=== PATIENT | female | born 1935 | race African-American/Black ===

== ENCOUNTER → 2021-07-17 | Outpatient (CLI) | payer MEDICARE ==
[2021-07-17 12:01] LABS: Basophils # (auto) 0 10 ^3/uL (0-0.2); Basophils % (auto) 0.3 % (0.0-2.0); Eosinophils # (auto) 0.7 10 ^3/uL (0-0.8); Eosinophils % (auto) 8.2 % (0.0-7.0); Hematocrit 36.5 % (36.0-46.0); Hemoglobin 12.1 g/dL (12.2-16.2); Lymphocytes # (auto) 4.3 10 ^3/uL (0.4-5.4); Lymphocytes % (auto) 54.3 % (10.0-50.0); Mean Corpuscular Hemoglobin 29.6 pg (28.0-32.0); Mean Corpuscular Hgb Conc. 33.1 g/dL (32.0-36.0); Mean Corpuscular Volume 89.5 fL (80.0-100.0); Monocytes # (auto) 0.7 10 ^3/uL (0-1.3); Monocytes % (auto) 8.6 % (0.0-12.0); Neutrophils # (auto) 2.3 10 ^3/uL (1.6-8.6); Neutrophils % (auto) 28.6 % (37.0-80.0); Nucleated Red Blood Cells % 0.1 %; Red Blood Cells 4.08 10^6/uL (4.0-5.20); Red Cell Distribution Width 13.9 % (11.8-14.3)
[2021-07-17 12:33] LABS: Potassium 4.2 mmol/L (3.5-5.1)
[2021-07-17 12:38] LABS: Albumin 3.1 g/dL (3.4-5.0); BUN/Creatinine Ratio 12.7; Calcium 8.9 mg/dL (8.5-10.1)
[2021-07-17 12:41] LABS: Bilirubin, Total 0.3 mg/dL (0.2-1.0); Total Protein 8.3 g/dL (6.4-8.2)
== END | disposition home or self-care (01) ==
LOC: LAB 10:51
PROVIDERS: ATTEND Nurse Practitioner Family
DX: E66.8 Other obesity (principal); Z00.00 Encounter for general adult medical examination without abnormal findings
CPT/HCPCS: 36415; 80053; 85025

== ENCOUNTER 2021-07-22 00:01 | Inpatient (IN) | payer MEDICARE, OTHER ==
[~2021-07-22] VITALS: Ht 154.9 cm; Wt 71.8 kg
[2021-07-22] MEDS ORDERED: SODIUM CHLORIDE 0.9% 1,000 ML IVB ONE (01:15)
[2021-07-22] MEDS ORDERED: ONDANSETRON HCL 4 MG/2 ML VIAL IV ONE (01:15)
[2021-07-22 01:42] LABS: Basophils # (auto) 0 10 ^3/uL (0-0.2); Basophils % (auto) 0.4 % (0.0-2.0); Eosinophils # (auto) 0 10 ^3/uL (0-0.8); Eosinophils % (auto) 0.2 % (0.0-7.0); Hematocrit 32.6 % (36.0-46.0); Hemoglobin 11.1 g/dL (12.2-16.2); Lymphocytes # (auto) 1.6 10 ^3/uL (0.4-5.4); Lymphocytes % (auto) 20.3 % (10.0-50.0); Mean Corpuscular Hemoglobin 30.2 pg (28.0-32.0); Mean Corpuscular Hgb Conc. 34.1 g/dL (32.0-36.0); Mean Corpuscular Volume 88.5 fL (80.0-100.0); Monocytes # (auto) 0.9 10 ^3/uL (0-1.3); Monocytes % (auto) 10.9 % (0.0-12.0); Neutrophils # (auto) 5.5 10 ^3/uL (1.6-8.6); Neutrophils % (auto) 68.2 % (37.0-80.0); Red Blood Cells 3.68 10^6/uL (4.0-5.20); Red Cell Distribution Width 13.8 % (11.8-14.3); White Blood Cell 8.1 10^3/uL (4.4-10.8)
[2021-07-22 02:00] LABS: Albumin 2.6 g/dL (3.4-5.0); BUN/Creatinine Ratio 16.9; Calcium 8.5 mg/dL (8.5-10.1); Magnesium 2.2 mg/dL (1.6-2.6); Potassium 3.1 mmol/L (3.5-5.1)
[2021-07-22 02:03] LABS: Bilirubin, Total 0.8 mg/dL (0.2-1.0); Total Protein 7.7 g/dL (6.4-8.2)
[2021-07-22] MEDS ORDERED: POTASSIUM EFFERVESENT TAB 25 MEQ PO ONE (02:30)
[2021-07-22] MEDS ORDERED: IOHEXOL 300 MG/ML 100ML BOTTLE IJ ONE (03:31)
[2021-07-22 05:49] LABS: Urine Bacteria FEW /hpf (None Seen); Urine Blood 1+ /uL (Negative); Urine Mucus FEW (None Seen); Urine WBC 5 /hpf (0 - 5)
[2021-07-22 05:50] LABS: Urine Specific Gravity > 1.050 (1.001-1.035)
[2021-07-22] MEDS: POTASSIUM CHL 20MEQ/100ML 100 ML IV SCH ×2 (07:09→09:08)
[2021-07-22 07:24] LABS: INR 1.23 (0.9-1.15)
[2021-07-22] MEDS ORDERED: NICOTINE 7MG/24HR TOPICAL PATCH TD ONE (10:15)
[2021-07-22] MEDS ORDERED: MORPHINE SULFATE INJ 2 MG/ml SYRG IV PRN (10:15)
[2021-07-22] MEDS ORDERED: hydrALAZINE HCL 20 MG/ML VL IV ONE (10:45)
[2021-07-22] MEDS ORDERED: hydrALAZINE HCL 20 MG/ML VL IV PRN (10:45)
[2021-07-22 10:55] LABS: Cholesterol 176 mg/dL (< 200); HDL Cholesterol 49 mg/dL (40-59); LDL Cholesterol 106 mg/dL (< 100); Triglycerides 83 mg/dL (< 150)
[2021-07-22 13:55] VITALS: BP 145/56
[2021-07-22 14:00] VITALS: BP 145/56
[2021-07-22 20:00] VITALS: BP 163/62
[2021-07-22 22:00] VITALS: BP_SYST 134; BP_SYST 163; BP_DIAS 62; BP_DIAS 86
[2021-07-23 06:34] LABS: Basophils # (auto) 0.1 10 ^3/uL (0-0.2); Basophils % (auto) 0.8 % (0.0-2.0); Eosinophils # (auto) 0 10 ^3/uL (0-0.8); Eosinophils % (auto) 0.4 % (0.0-7.0); Hematocrit 32.2 % (36.0-46.0); Hemoglobin 10.9 g/dL (12.2-16.2); Lymphocytes # (auto) 1.8 10 ^3/uL (0.4-5.4); Lymphocytes % (auto) 22.5 % (10.0-50.0); Mean Corpuscular Hemoglobin 30.1 pg (28.0-32.0); Mean Corpuscular Hgb Conc. 33.9 g/dL (32.0-36.0); Mean Corpuscular Volume 88.6 fL (80.0-100.0); Monocytes # (auto) 1.1 10 ^3/uL (0-1.3); Monocytes % (auto) 13.1 % (0.0-12.0); Neutrophils # (auto) 5.1 10 ^3/uL (1.6-8.6); Neutrophils % (auto) 63.2 % (37.0-80.0); Nucleated Red Blood Cells % 0.1 %; Red Blood Cells 3.64 10^6/uL (4.0-5.20); Red Cell Distribution Width 13.8 % (11.8-14.3)
[2021-07-23 06:53] LABS: Albumin 2.3 g/dL (3.4-5.0); BUN/Creatinine Ratio 15.9; Calcium 8.2 mg/dL (8.5-10.1); Potassium 3.4 mmol/L (3.5-5.1)
[2021-07-23 06:55] LABS: Bilirubin, Total 0.5 mg/dL (0.2-1.0); Total Protein 7.1 g/dL (6.4-8.2)
[2021-07-23 08:40] VITALS: BP 130/55
[2021-07-23] MEDS ORDERED: ENOXAPARIN SOD 40 MG/0.4 ML SYRINGE SC SCH (10:00)
[2021-07-23] MEDS ORDERED: NICOTINE 7MG/24HR TOPICAL PATCH TD SCH (10:00)
[2021-07-23] MEDS ORDERED: cefTRIAXone 1GM/50ML D5W 50 ML IV ONE (11:00)
[2021-07-23] MEDS ORDERED: POTASSIUM CHL 20 Meq TABLET PO ONE (11:00)
[2021-07-23] MEDS ORDERED: amLODIPine BESYLATE 5 MG TAB PO ONE (11:00)
[2021-07-23 12:40] VITALS: BP 144/51
[2021-07-23 16:54] VITALS: BP 146/59
[2021-07-23] MEDS: metroNIDAZOLE 500MG/100ML 100 ML IV SCH ×2 (17:08→22:21)
[2021-07-23 21:39] VITALS: BP 146/62
[2021-07-24 04:45] VITALS: BP 129/55
[2021-07-24] MEDS: metroNIDAZOLE 500MG/100ML 100 ML IV SCH ×3 (06:11→21:59)
[2021-07-24 07:21] LABS: BUN/Creatinine Ratio 17.2; Calcium 7.9 mg/dL (8.5-10.1); Potassium 3.2 mmol/L (3.5-5.1)
[2021-07-24 08:00] VITALS: BP_SYST 141; BP_SYST 142; BP_DIAS 65; BP_DIAS 80
[2021-07-24] MEDS ORDERED: POTASSIUM CHL 20 Meq TABLET PO ONE (10:00)
[2021-07-24] MEDS ORDERED: amLODIPine BESYLATE 5 MG TAB PO SCH (10:00)
[2021-07-24] MEDS: D5W/SOD CHL 0.45%/KCL 20MEQ 1,000 ML IV SCH (10:24)
[2021-07-24] MEDS: cefTRIAXone 1GM/50ML D5W 50 ML IV SCH (10:24)
[2021-07-24 12:30] VITALS: BP 134/53
[2021-07-24 17:06] VITALS: BP 148/64
[2021-07-24 22:00] VITALS: BP 140/67
[2021-07-25 05:00] VITALS: BP_SYST 119; BP_SYST 150; BP_DIAS 42; BP_DIAS 69
[2021-07-25] MEDS: D5W/SOD CHL 0.45%/KCL 20MEQ 1,000 ML IV SCH ×2 (05:28→16:01)
[2021-07-25] MEDS: metroNIDAZOLE 500MG/100ML 100 ML IV SCH ×3 (06:07→22:55)
[2021-07-25 06:46] LABS: BUN/Creatinine Ratio 12.7; Calcium 8.2 mg/dL (8.5-10.1); Potassium 3.2 mmol/L (3.5-5.1)
[2021-07-25 08:00] VITALS: BP 145/67
[2021-07-25] MEDS: cefTRIAXone 1GM/50ML D5W 50 ML IV SCH (09:24)
[2021-07-25] MEDS: amLODIPine BESYLATE 5 MG TAB PO SCH (10:16)
[2021-07-25] MEDS ORDERED: HYDROmorphone HCL 2 MG/ML VL/or syr ONE (11:32)
[2021-07-25] MEDS ORDERED: MIDAZOLAM HCL 2MG/2ML 2ml VIAL (1mg/ml) ONE (11:33)
[2021-07-25] MEDS ORDERED: fentaNYL CITRATE 100 MCG/2 ML VL ONE (11:33)
[2021-07-25] MEDS ORDERED: LIDOCAINE 2% (LOCAL ANESTH.) PF 5ml SDV ONE (11:34)
[2021-07-25] MEDS ORDERED: ePHEDrine SULFATE 50 MG/ML AMP ONE (11:34)
[2021-07-25] MEDS ORDERED: DexAMETHasone SOD PHOS 10MG/1ML VIAL INJ ONE (11:34)
[2021-07-25] MEDS ORDERED: ONDANSETRON HCL 4 MG/2 ML VIAL ONE (11:34)
[2021-07-25] MEDS ORDERED: PHENYLEPHRINE HCL 10 MG/ML VL ONE (11:34)
[2021-07-25] MEDS ORDERED: GLYCOPYRROLATE 0.2 MG/ML 1ML VIAL ONE (11:34)
[2021-07-25] MEDS ORDERED: ROCURONIUM 10MG/ML 10ML VIAL IV ONE (11:38)
[2021-07-25 12:00] VITALS: BP 135/60
[2021-07-25] MEDS ORDERED: LIDOCAINE 1%-Mpf/Epinephrine 1:200,000 ONE (12:16)
[2021-07-25] MEDS ORDERED: BUPIVACAINE 0.25% INJ 50ML VIAL ONE (12:16)
[2021-07-25] MEDS ORDERED: ceFAZolin 1GM/50ML 100 ML IV ONE (12:19)
[2021-07-25] MEDS ORDERED: SUGAMMADEX 200mg/2ml Vial (100MG/ML) IV ONE (13:09)
[2021-07-25] MEDS ORDERED: HYDROmorphone HCL 2 MG/ML VL/or syr IV PRN ×2 (13:15→13:45)
[2021-07-25] MEDS ORDERED: KETAMINE 50mg/ML 10ml Vial (500mg/10ml) IV ONE (13:21)
[2021-07-25] MEDS ORDERED: ONDANSETRON HCL 4 MG/2 ML VIAL IV PRN (13:45)
[2021-07-25 16:00] VITALS: BP 138/65
[2021-07-25 22:31] VITALS: BP 158/69
[2021-07-26 05:34] VITALS: BP 144/65
[2021-07-26] MEDS: metroNIDAZOLE 500MG/100ML 100 ML IV SCH ×3 (05:39→21:42)
[2021-07-26 05:41] LABS: Albumin 2.3 g/dL (3.4-5.0); BUN/Creatinine Ratio 11.8; Calcium 8.3 mg/dL (8.5-10.1); Magnesium 2.3 mg/dL (1.6-2.6); Potassium 3.7 mmol/L (3.5-5.1)
[2021-07-26 05:44] LABS: Bilirubin, Total 0.3 mg/dL (0.2-1.0); Total Protein 7.2 g/dL (6.4-8.2)
[2021-07-26] MEDS: cefTRIAXone 1GM/50ML D5W 50 ML IV SCH (09:15)
[2021-07-26] MEDS: amLODIPine BESYLATE 5 MG TAB PO SCH (09:31)
[2021-07-26] MEDS ORDERED: MORPHINE SULFATE INJ 2 MG/ml SYRG IV PRN (10:15)
[2021-07-26] MEDS ORDERED: traMADol HCL 50 MG TAB PO PRN (10:15)
[2021-07-26 13:00] VITALS: BP 141/67
[2021-07-26 17:00] VITALS: BP 135/56
[2021-07-26 22:00] VITALS: BP 163/64
[2021-07-27] MEDS: ONDANSETRON HCL 4 MG/2 ML VIAL IV PRN ×2 (00:47→10:19)
[2021-07-27] MEDS: D5W/SOD CHL 0.45%/KCL 20MEQ 1,000 ML IV SCH ×2 (01:16→18:09)
[2021-07-27 05:00] VITALS: BP 166/73
[2021-07-27] MEDS: metroNIDAZOLE 500MG/100ML 100 ML IV SCH ×3 (06:30→22:41)
[2021-07-27 07:07] LABS: Eosinophils # (auto) 0 10 ^3/uL (0-0.8); Monocytes # (auto) 0.7 10 ^3/uL (0-1.3); Neutrophils # (auto) 13.4 10 ^3/uL (1.6-8.6); White Blood Cell 16.4 10^3/uL (4.4-10.8)
[2021-07-27 07:12] LABS: Basophils # (auto) 0 10 ^3/uL (0-0.2); Basophils % (auto) 0.3 % (0.0-2.0); Hematocrit 32.6 % (36.0-46.0); Hemoglobin 11.3 g/dL (12.2-16.2); Lymphocytes # (auto) 2.3 10 ^3/uL (0.4-5.4); Mean Corpuscular Hemoglobin 30.8 pg (28.0-32.0); Mean Corpuscular Hgb Conc. 34.6 g/dL (32.0-36.0); Monocytes % (auto) 4.2 % (0.0-12.0); Neutrophils % (auto) 81.5 % (37.0-80.0); Red Blood Cells 3.66 10^6/uL (4.0-5.20); Red Cell Distribution Width 14.1 % (11.8-14.3)
[2021-07-27 07:27] LABS: Albumin 2.4 g/dL (3.4-5.0); Calcium 8.6 mg/dL (8.5-10.1); Potassium 3.1 mmol/L (3.5-5.1)
[2021-07-27 07:29] LABS: BUN/Creatinine Ratio 18.2
[2021-07-27 07:32] LABS: Bilirubin, Total 0.3 mg/dL (0.2-1.0); Total Protein 7.3 g/dL (6.4-8.2)
[2021-07-27 09:00] VITALS: BP 128/48
[2021-07-27] MEDS ORDERED: ACETAMINOPHEN 325 MG TAB PO PRN (09:15)
[2021-07-27 09:52] VITALS: BP 172/73
[2021-07-27] MEDS: amLODIPine BESYLATE 5 MG TAB PO SCH (10:00)
[2021-07-27] MEDS: cefTRIAXone 1GM/50ML D5W 50 ML IV SCH (10:18)
[2021-07-27 13:00] VITALS: BP 162/77
[2021-07-27] MEDS ORDERED: ACETAMINOPHEN 500 MG TAB PO PRN (13:30)
[2021-07-27] MEDS ORDERED: KETOROLAC TROMETH 30 MG/ML 1ML VIAL IV PRN (13:30)
[2021-07-27 16:47] VITALS: BP 147/62
[2021-07-27 21:54] VITALS: BP 155/65
[2021-07-28 05:00] VITALS: BP 124/66
[2021-07-28] MEDS: metroNIDAZOLE 500MG/100ML 100 ML IV SCH ×3 (06:24→21:30)
[2021-07-28 07:15] LABS: Eosinophils # (auto) 0.1 10 ^3/uL (0-0.8); Eosinophils % (auto) 0.4 % (0.0-7.0); Hemoglobin 10.6 g/dL (12.2-16.2); Red Cell Distribution Width 14.3 % (11.8-14.3); White Blood Cell 17.5 10^3/uL (4.4-10.8)
[2021-07-28 07:17] LABS: Basophils # (auto) 0 10 ^3/uL (0-0.2); Basophils % (auto) 0.2 % (0.0-2.0); Hematocrit 31.8 % (36.0-46.0); Lymphocytes # (auto) 3.6 10 ^3/uL (0.4-5.4); Lymphocytes % (auto) 20.8 % (10.0-50.0); Mean Corpuscular Hemoglobin 29.6 pg (28.0-32.0); Mean Corpuscular Hgb Conc. 33.2 g/dL (32.0-36.0); Monocytes # (auto) 1.1 10 ^3/uL (0-1.3); Monocytes % (auto) 6.2 % (0.0-12.0); Neutrophils # (auto) 12.6 10 ^3/uL (1.6-8.6); Neutrophils % (auto) 72.4 % (37.0-80.0); Red Blood Cells 3.57 10^6/uL (4.0-5.20)
[2021-07-28 09:00] VITALS: BP 152/71
[2021-07-28] MEDS: POTASSIUM CHL 20MEQ/100ML 100 ML IV SCH ×2 (10:56→13:30)
[2021-07-28] MEDS: cefTRIAXone 1GM/50ML D5W 50 ML IV SCH (10:56)
[2021-07-28] MEDS: amLODIPine BESYLATE 5 MG TAB PO SCH (10:57)
[2021-07-28] MEDS: D5W/SOD CHL 0.45%/KCL 20MEQ 1,000 ML IV SCH (13:21)
[2021-07-28 17:52] VITALS: BP 136/65
[2021-07-28 22:00] VITALS: BP 123/63
[2021-07-29 05:00] VITALS: BP 153/53
[2021-07-29] MEDS: metroNIDAZOLE 500MG/100ML 100 ML IV SCH ×3 (06:26→21:45)
[2021-07-29 06:34] LABS: Basophils # (auto) 0.1 10 ^3/uL (0-0.2); Basophils % (auto) 0.9 % (0.0-2.0); Eosinophils # (auto) 0.2 10 ^3/uL (0-0.8); Mean Corpuscular Hemoglobin 30.5 pg (28.0-32.0); Monocytes # (auto) 0.8 10 ^3/uL (0-1.3); Nucleated Red Blood Cells % 0.1 %
[2021-07-29 06:36] LABS: Eosinophils % (auto) 1.9 % (0.0-7.0); Hematocrit 31.3 % (36.0-46.0); Hemoglobin 10.8 g/dL (12.2-16.2); Lymphocytes # (auto) 3.6 10 ^3/uL (0.4-5.4); Lymphocytes % (auto) 31.6 % (10.0-50.0); Mean Corpuscular Hgb Conc. 34.4 g/dL (32.0-36.0); Mean Corpuscular Volume 88.6 fL (80.0-100.0); Monocytes % (auto) 6.7 % (0.0-12.0); Neutrophils # (auto) 6.7 10 ^3/uL (1.6-8.6); Neutrophils % (auto) 58.9 % (37.0-80.0); Red Blood Cells 3.54 10^6/uL (4.0-5.20); Red Cell Distribution Width 14.5 % (11.8-14.3); White Blood Cell 11.4 10^3/uL (4.4-10.8)
[2021-07-29 06:49] LABS: Albumin 2.1 g/dL (3.4-5.0); Calcium 7.4 mg/dL (8.5-10.1); Potassium 3.2 mmol/L (3.5-5.1)
[2021-07-29 06:54] LABS: BUN/Creatinine Ratio 22.6; Bilirubin, Total 0.3 mg/dL (0.2-1.0); Total Protein 6.4 g/dL (6.4-8.2)
[2021-07-29 09:00] VITALS: BP 146/64
[2021-07-29] MEDS: D5W/SOD CHL 0.45%/KCL 20MEQ 1,000 ML IV SCH (09:15)
[2021-07-29] MEDS ORDERED: POTASSIUM CHL 20 Meq TABLET PO ONE (09:45)
[2021-07-29] MEDS: cefTRIAXone 1GM/50ML D5W 50 ML IV SCH (10:57)
[2021-07-29] MEDS: amLODIPine BESYLATE 5 MG TAB PO SCH (11:01)
[2021-07-29 13:00] VITALS: BP 135/60
[2021-07-29 17:00] VITALS: BP 129/67
[2021-07-29 22:00] VITALS: BP 146/76
[2021-07-30 05:00] VITALS: BP 139/71
[2021-07-30] MEDS: metroNIDAZOLE 500MG/100ML 100 ML IV SCH (05:20)
[2021-07-30] MEDS: D5W/SOD CHL 0.45%/KCL 20MEQ 1,000 ML IV SCH (05:20)
[2021-07-30 09:39] VITALS: BP 140/72
[2021-07-30 10:00] LABS: Basophils # (auto) 0.1 10 ^3/uL (0-0.2); Eosinophils # (auto) 0.2 10 ^3/uL (0-0.8); Mean Corpuscular Hgb Conc. 33.1 g/dL (32.0-36.0); Red Cell Distribution Width 14.4 % (11.8-14.3)
[2021-07-30 10:02] LABS: Basophils % (auto) 0.5 % (0.0-2.0); Eosinophils % (auto) 1.5 % (0.0-7.0); Hematocrit 32.5 % (36.0-46.0); Hemoglobin 10.7 g/dL (12.2-16.2); Lymphocytes # (auto) 3.2 10 ^3/uL (0.4-5.4); Lymphocytes % (auto) 28.3 % (10.0-50.0); Mean Corpuscular Hemoglobin 29.9 pg (28.0-32.0); Mean Corpuscular Volume 90.3 fL (80.0-100.0); Monocytes # (auto) 0.7 10 ^3/uL (0-1.3); Neutrophils # (auto) 7.2 10 ^3/uL (1.6-8.6); Neutrophils % (auto) 63.7 % (37.0-80.0); White Blood Cell 11.3 10^3/uL (4.4-10.8)
[2021-07-30] MEDS: cefTRIAXone 1GM/50ML D5W 50 ML IV SCH (10:19)
[2021-07-30] MEDS: amLODIPine BESYLATE 5 MG TAB PO SCH (10:21)
[2021-07-30 10:27] LABS: BUN/Creatinine Ratio 13.1; Calcium 7.5 mg/dL (8.5-10.1)
[2021-07-30] MEDS ORDERED: FUROSEMIDE 40 MG/4 ML VIAL IV ONE (10:45)
[2021-07-30] MEDS ORDERED: POTASSIUM CHL 20 Meq TABLET PO ONE (10:45)
[2021-07-30] MEDS: Ensure HIGH Protein Chocolate 8oz Bottle PO SCH ×2 (12:00→18:00)
[2021-07-30 13:29] VITALS: BP 141/68
[2021-07-30] MEDS: metroNIDAZOLE 500 MG TAB PO SCH ×2 (14:12→21:28)
[2021-07-30 16:40] VITALS: BP 131/63
[2021-07-30 22:00] VITALS: BP 131/71
[2021-07-31 05:00] VITALS: BP_SYST 109; BP_SYST 170; BP_DIAS 67; BP_DIAS 78
[2021-07-31 05:33] LABS: Basophils # (auto) 0.1 10 ^3/uL (0-0.2); Eosinophils # (auto) 0.2 10 ^3/uL (0-0.8); Mean Corpuscular Volume 88.6 fL (80.0-100.0)
[2021-07-31 05:38] LABS: Basophils % (auto) 0.5 % (0.0-2.0); Eosinophils % (auto) 1.8 % (0.0-7.0); Hematocrit 31.6 % (36.0-46.0); Lymphocytes % (auto) 27.3 % (10.0-50.0); Mean Corpuscular Hemoglobin 30.9 pg (28.0-32.0); Mean Corpuscular Hgb Conc. 34.9 g/dL (32.0-36.0); Monocytes # (auto) 0.6 10 ^3/uL (0-1.3); Monocytes % (auto) 5.7 % (0.0-12.0); Neutrophils # (auto) 7.2 10 ^3/uL (1.6-8.6); Neutrophils % (auto) 64.7 % (37.0-80.0); Nucleated Red Blood Cells % 0.1 %; Red Blood Cells 3.56 10^6/uL (4.0-5.20); Red Cell Distribution Width 14.2 % (11.8-14.3); White Blood Cell 11.1 10^3/uL (4.4-10.8)
[2021-07-31] MEDS: metroNIDAZOLE 500 MG TAB PO SCH ×2 (05:43→13:55)
[2021-07-31 05:50] LABS: BUN/Creatinine Ratio 19.2; Calcium 7.9 mg/dL (8.5-10.1); Potassium 3.4 mmol/L (3.5-5.1)
[2021-07-31 08:50] VITALS: BP 138/58
[2021-07-31] MEDS ORDERED: FUROSEMIDE 20 MG/2 ML VIAL IV ONE (09:45)
[2021-07-31] MEDS ORDERED: POTASSIUM CHL 20 Meq TABLET PO ONE (09:45)
[2021-07-31] MEDS ORDERED: AML5T PO (09:46)
[2021-07-31] MEDS ORDERED: MET500T PO (09:46)
[2021-07-31] MEDS ORDERED: LEVO500T31 PO (09:46)
[2021-07-31] MEDS: cefTRIAXone 1GM/50ML D5W 50 ML IV SCH (09:52)
[2021-07-31] MEDS: Ensure HIGH Protein Chocolate 8oz Bottle PO SCH ×3 (09:53→17:49)
[2021-07-31] MEDS: amLODIPine BESYLATE 5 MG TAB PO SCH (09:53)
[2021-07-31 13:00] VITALS: BP 124/58
[2021-07-31 17:02] VITALS: BP 122/63
[2021-07-31 17:56] VITALS: BP 122/63
[2021-08-01] MEDS ORDERED: METR500T PO (11:42)
[2021-08-01] MEDS ORDERED: LEVO500T31 PO (11:42)
[2021-08-01] MEDS ORDERED: AMLO-496 PO (11:42)
== END 2021-07-31 18:45 | disposition home or self-care (01) | DRG 417 ==
LOC: EDBD 00:01 → ER 00:01 → OVERFLOW 10:14 → CENTRAL 12:58
PROVIDERS: ADMIT Registered Nurse; ATTEND Internal Medicine
PROC: 0FT44ZZ Resection of Gallbladder, Percutaneous Endoscopic Approach (ICD-10-PCS; principal; 2021-07-25 12:24)
DX: K80.00 Calculus of gallbladder with acute cholecystitis without obstruction (principal); J96.00 Acute respiratory failure, unspecified whether with hypoxia or hypercapnia; I50.31 Acute diastolic (congestive) heart failure; J18.9 Pneumonia, unspecified organism; N39.0 Urinary tract infection, site not specified; I13.0 Hypertensive heart and chronic kidney disease with heart failure and stage 1 through stage 4 chronic kidney disease, or unspecified chronic kidney disease; J98.11 Atelectasis; E66.9 Obesity, unspecified; R73.9 Hyperglycemia, unspecified; E78.5 Hyperlipidemia, unspecified; Z20.822 Contact with and (suspected) exposure to COVID-19; E87.6 Hypokalemia; E88.09 Other disorders of plasma-protein metabolism, not elsewhere classified; N18.2 Chronic kidney disease, stage 2 (mild); Z79.899 Other long term (current) drug therapy; Z90.49 Acquired absence of other specified parts of digestive tract; Z91.81 History of falling; Z68.29 Body mass index [BMI] 29.0-29.9, adult
CPT/HCPCS: 36415; 36600; 71045; 74177; 76705; 78226; 80048; 80053; 80061; 81001; 82805; 83036; 83605; 83690; 83735; 83880; 84484; 85025; 85610; 86850; 86900; 86901; 87070; 87086; 87205; 93306; 96361; 96365; 96366; 97110; 97116; 97530; G0378; J0690; J0696; J1100; J2001; J2250; J2405; J3480; J3490

== ENCOUNTER 2021-08-23 20:34 | Inpatient (IN) | payer MEDICARE, OTHER ==
[~2021-08-23] VITALS: Ht 157.5 cm; Wt 39.3 kg
[~2021-08-23 20:34] MED LIST: AML5T PO; AMLO-496 PO; LEVO500T31 PO; MET500T PO; METR500T PO
[2021-08-23 21:00] VITALS: BP 178/71
[2021-08-23 21:10] LABS: Basophils # (auto) 0.1 10 ^3/uL (0-0.2); Basophils % (auto) 0.7 % (0.0-2.0); Eosinophils # (auto) 0 10 ^3/uL (0-0.8); Eosinophils % (auto) 0.3 % (0.0-7.0); Hematocrit 36.6 % (36.0-46.0); Hemoglobin 11.6 g/dL (12.2-16.2); Lymphocytes # (auto) 1.7 10 ^3/uL (0.4-5.4); Lymphocytes % (auto) 19.2 % (10.0-50.0); Mean Corpuscular Hemoglobin 28.6 pg (28.0-32.0); Mean Corpuscular Hgb Conc. 31.7 g/dL (32.0-36.0); Mean Corpuscular Volume 90.2 fL (80.0-100.0); Monocytes # (auto) 0.3 10 ^3/uL (0-1.3); Monocytes % (auto) 3.7 % (0.0-12.0); Neutrophils # (auto) 6.6 10 ^3/uL (1.6-8.6); Neutrophils % (auto) 76.1 % (37.0-80.0); Nucleated Red Blood Cells % 0.1 %; Red Blood Cells 4.06 10^6/uL (4.0-5.20); White Blood Cell 8.6 10^3/uL (4.4-10.8)
[2021-08-23] MEDS ORDERED: ONDANSETRON HCL 4 MG/2 ML VIAL IV ONE (21:30)
[2021-08-23 21:39] LABS: Albumin 3.1 g/dL (3.4-5.0); Calcium 8.8 mg/dL (8.5-10.1); Potassium 3.8 mmol/L (3.5-5.1)
[2021-08-23 21:42] LABS: BUN/Creatinine Ratio 16.4; Total Protein 8.1 g/dL (6.4-8.2)
[2021-08-24 02:01] LABS: Urine Bacteria MANY /hpf (None Seen); Urine Blood Negative /uL (Negative); Urine Specific Gravity 1.012 (1.001-1.035); Urine WBC 6 /hpf (0 - 5)
[2021-08-24] MEDS ORDERED: HYDROcodone-ACET 5/325MG TAB PO PRN (02:30)
[2021-08-24] MEDS ORDERED: MORPHINE SULFATE INJ 2 MG/ml SYRG IV PRN ×2 (02:30→03:30)
[2021-08-24] MEDS ORDERED: amLODIPine BESYLATE 5 MG TAB PO ONE (02:30)
[2021-08-24] MEDS ORDERED: hydrALAZINE HCL 20 MG/ML VL IV PRN (02:30)
[2021-08-24] MEDS ORDERED: DOCUSATE SOD 100 MG CAP PO PRN (02:30)
[2021-08-24] MEDS ORDERED: ACETAMINOPHEN 325 MG TAB PO PRN (02:30)
[2021-08-24] MEDS ORDERED: ONDANSETRON HCL 4 MG/2 ML VIAL IV PRN (02:30)
[2021-08-24] MEDS ORDERED: NITROGLYCERIN 0.4 MG SL TAB SL PRN (03:30)
[2021-08-24] MEDS ORDERED: ALBUTEROL SULF 2.5 MG/0.5ML(0.5%) NEB SOLN NEB PRN (03:45)
[2021-08-24] MEDS ORDERED: IPRATROPIUM BROM 0.5 MG/2.5ML INH SOL NEB PRN (03:45)
[2021-08-24] MEDS ORDERED: FUROSEMIDE 40 MG/4 ML VIAL IV ONE (04:00)
[2021-08-24] MEDS: SODIUM CHLORIDE 0.9% 1,000 ML IV SCH ×2 (04:02→19:10)
[2021-08-24 09:18] LABS: Basophils # (auto) 0.1 10 ^3/uL (0-0.2); Basophils % (auto) 1.1 % (0.0-2.0); Eosinophils # (auto) 0 10 ^3/uL (0-0.8); Hemoglobin 11.9 g/dL (12.2-16.2); Lymphocytes % (auto) 38.9 % (10.0-50.0); Monocytes # (auto) 0.5 10 ^3/uL (0-1.3); Nucleated Red Blood Cells % 0.1 %
[2021-08-24 09:19] LABS: Calcium 8.9 mg/dL (8.5-10.1); Potassium 4.2 mmol/L (3.5-5.1)
[2021-08-24 09:20] LABS: Hematocrit 35.8 % (36.0-46.0); Lymphocytes # (auto) 3.7 10 ^3/uL (0.4-5.4); Mean Corpuscular Hemoglobin 29.9 pg (28.0-32.0); Mean Corpuscular Hgb Conc. 33.2 g/dL (32.0-36.0); Mean Corpuscular Volume 90.1 fL (80.0-100.0); Monocytes % (auto) 5.7 % (0.0-12.0); Neutrophils # (auto) 5.1 10 ^3/uL (1.6-8.6); Neutrophils % (auto) 54.3 % (37.0-80.0); Red Blood Cells 3.97 10^6/uL (4.0-5.20); White Blood Cell 9.5 10^3/uL (4.4-10.8)
[2021-08-24 09:25] LABS: BUN/Creatinine Ratio 11.5; Bilirubin, Total 1.6 mg/dL (0.2-1.0); Total Protein 8.7 g/dL (6.4-8.2)
[2021-08-24] MEDS: ZINC SULFATE 220mg CAP or TAB PO SCH (10:00)
[2021-08-24] MEDS: FAMOTIDINE (10MG/ML) 2ML VL IV SCH (10:00)
[2021-08-24] MEDS ORDERED: FUROSEMIDE 40 MG/4 ML VIAL IV SCH (10:00)
[2021-08-24] MEDS: MULTIPLE VITAMIN TAB PO SCH (10:00)
[2021-08-24] MEDS: ENOXAPARIN SOD 40 MG/0.4 ML SYRINGE SC SCH (10:00)
[2021-08-24] MEDS: ASCORBIC ACID 500 MG TAB PO SCH ×2 (10:00→20:51)
[2021-08-24] MEDS: amLODIPine BESYLATE 5 MG TAB PO SCH (10:09)
[2021-08-24 16:57] VITALS: BP 128/64
[2021-08-24 18:22] VITALS: BP 116/67
[2021-08-24 22:00] VITALS: BP 138/69
[2021-08-25 05:00] VITALS: BP 128/66
[2021-08-25 05:54] LABS: Basophils # (auto) 0.1 10 ^3/uL (0-0.2); Basophils % (auto) 0.7 % (0.0-2.0); Eosinophils # (auto) 0.2 10 ^3/uL (0-0.8); Eosinophils % (auto) 1.9 % (0.0-7.0); Hematocrit 35.5 % (36.0-46.0); Hemoglobin 11.7 g/dL (12.2-16.2); Lymphocytes # (auto) 3.8 10 ^3/uL (0.4-5.4); Lymphocytes % (auto) 45.2 % (10.0-50.0); Mean Corpuscular Hemoglobin 29.5 pg (28.0-32.0); Mean Corpuscular Hgb Conc. 33.1 g/dL (32.0-36.0); Mean Corpuscular Volume 89.2 fL (80.0-100.0); Monocytes # (auto) 0.5 10 ^3/uL (0-1.3); Monocytes % (auto) 6.1 % (0.0-12.0); Neutrophils # (auto) 3.9 10 ^3/uL (1.6-8.6); Neutrophils % (auto) 46.1 % (37.0-80.0); Red Blood Cells 3.98 10^6/uL (4.0-5.20); Red Cell Distribution Width 15.3 % (11.8-14.3); White Blood Cell 8.4 10^3/uL (4.4-10.8)
[2021-08-25 06:27] LABS: Calcium 8.6 mg/dL (8.5-10.1); Potassium 3.6 mmol/L (3.5-5.1)
[2021-08-25 06:31] LABS: BUN/Creatinine Ratio 22.9; Bilirubin, Total 0.6 mg/dL (0.2-1.0); Total Protein 7.9 g/dL (6.4-8.2)
[2021-08-25] MEDS: MULTIPLE VITAMIN TAB PO SCH (08:50)
[2021-08-25] MEDS: amLODIPine BESYLATE 5 MG TAB PO SCH (08:50)
[2021-08-25] MEDS: ENOXAPARIN SOD 40 MG/0.4 ML SYRINGE SC SCH (08:50)
[2021-08-25] MEDS: FAMOTIDINE (10MG/ML) 2ML VL IV SCH (08:50)
[2021-08-25] MEDS: ASCORBIC ACID 500 MG TAB PO SCH ×2 (08:50→20:50)
[2021-08-25] MEDS: ZINC SULFATE 220mg CAP or TAB PO SCH (08:50)
[2021-08-25 09:00] VITALS: BP 117/66
[2021-08-25 13:00] VITALS: BP 112/62
[2021-08-25] MEDS: SODIUM CHLORIDE 0.9% 1,000 ML IV SCH (16:39)
[2021-08-25 16:51] VITALS: BP 133/78
[2021-08-25 17:00] VITALS: BP 114/58
[2021-08-25 22:16] VITALS: BP 120/65
[2021-08-26] MEDS: SODIUM CHLORIDE 0.9% 1,000 ML IV SCH (04:30)
[2021-08-26 04:45] VITALS: BP 124/58
[2021-08-26 08:30] VITALS: BP 118/62
[2021-08-26] MEDS: ENOXAPARIN SOD 40 MG/0.4 ML SYRINGE SC SCH (09:34)
[2021-08-26] MEDS: ASCORBIC ACID 500 MG TAB PO SCH (09:35)
[2021-08-26] MEDS: amLODIPine BESYLATE 5 MG TAB PO SCH (09:35)
[2021-08-26] MEDS: FAMOTIDINE (10MG/ML) 2ML VL IV SCH (09:35)
[2021-08-26] MEDS: ZINC SULFATE 220mg CAP or TAB PO SCH (09:35)
[2021-08-26] MEDS: MULTIPLE VITAMIN TAB PO SCH (09:35)
[2021-08-26 12:41] VITALS: BP 141/69
[2021-08-26 15:29] VITALS: BP 141/69
[2021-08-26 16:33] VITALS: BP 155/64
== END 2021-08-26 17:20 | disposition short-term general hospital (02) | DRG 446 ==
LOC: ER 20:34 → EDBD 20:34 → TELE 08-24 03:17 → TELE-CENTR 08-24 16:30
PROVIDERS: ADMIT Nurse Practitioner Family; ATTEND Family Medicine
DX: K80.50 Calculus of bile duct without cholangitis or cholecystitis without obstruction (principal); I16.0 Hypertensive urgency; I10 Essential (primary) hypertension; R09.89 Other specified symptoms and signs involving the circulatory and respiratory systems; R74.8 Abnormal levels of other serum enzymes; G89.18 Other acute postprocedural pain; Z20.822 Contact with and (suspected) exposure to COVID-19; R79.89 Other specified abnormal findings of blood chemistry; R11.2 Nausea with vomiting, unspecified; Z90.49 Acquired absence of other specified parts of digestive tract; Z82.49 Family history of ischemic heart disease and other diseases of the circulatory system
CPT/HCPCS: 36415; 71045; 74176; 74181; 80053; 81001; 83036; 83880; 84484; 85025; 93005; 96374; 96375; 96376; G0378; J2405; J3490